=== PATIENT | male | born 2000 | race Caucasian/White ===

== ENCOUNTER 2018-05-20 09:25 | Emergency (ER) | payer SELFPAY ==
[~2018-05-20] VITALS: Ht 167.6 cm; Wt 61.2 kg
[~2018-05-20 09:25] MED LIST: CEPHALEXIN500 M2 PO; MOTRIN IB200 M1 PO; NAPROSYN500 M1 PO; NORCO 325 MG-51 TAB PO
[2018-05-20] MEDS ORDERED: ZOFRAN ODT4 MG PO (10:35)
[2018-05-20 10:54] VITALS: BP 89/46
== END 2018-05-20 10:56 | disposition home or self-care (01) ==
LOC: ED 09:25
DX: J06.9 Acute upper respiratory infection, unspecified (principal); R11.2 Nausea with vomiting, unspecified

== ENCOUNTER 2018-06-23 13:51 | Emergency (ER) | payer SELFPAY ==
[~2018-06-23] VITALS: Ht 170.2 cm; Wt 57.7 kg
[~2018-06-23 13:51] MED LIST changes: +ZOFRAN ODT4 MG PO
[2018-06-23 14:43] LABS: EOS # 0.1 (0.04-0.40); EOS % 1.4 % (0.0-4.0); HEMATOCRIT 45.3 % (36.0-47.0); HEMOGLOBIN 15.5 g/dL (12.5-16.1); LYMPH# 1.9 (1.50-4.00); MEAN CELL VOLUME 84 fl (78-95); MEAN CORPUSCULAR HEMOGLOBIN 29 pg (26-32); MEAN CORPUSCULAR HGB CONC 34 g/dL (33-37); MEAN PLATELET VOLUME 10.1 fl (7.4-10.4); MONO # 0.7 (0.20-0.80); NEU # 3.1 (1.40-6.50); PLATELET COUNT 194 K/mm3 (130-400); RED BLOOD COUNT 5.42 M/mm3 (4.20-5.60); RED CELL DISTRIBUTION WIDTH 13.6 % (11.5-14.5); WHITE BLOOD COUNT 5.8 K/mm3 (4.8-10.8)
[2018-06-23] MEDS ORDERED: NIGHT-TIME COL300 ML PO (14:51)
[2018-06-23] MEDS ORDERED: GUAIFEN-CODEINE5 ML PO (14:55)
[2018-06-23 15:15] VITALS: BP 128/62
== END 2018-06-23 15:12 | disposition home or self-care (01) ==
LOC: ED 13:51
PROVIDERS: Family Medicine
DX: J06.9 Acute upper respiratory infection, unspecified (principal)

== ENCOUNTER 2019-02-15 18:16 | Emergency (ER) | payer SELFPAY ==
[~2019-02-15] VITALS: Ht 167.6 cm; Wt 57.3 kg
[~2019-02-15 18:16] MED LIST changes: +GUAIFEN-CODEINE5 ML PO; +NIGHT-TIME COL300 ML PO
[2019-02-15 18:19] VITALS: BP 138/72
[2019-02-15] MEDS ORDERED: PROAIR HFA0.09 MG/AC IH (19:05)
[2019-02-15] MEDS ORDERED: FLUTICASON0.05 MG/AC NS (19:05)
[2019-02-15] MEDS ORDERED: AZITHROMYCIN 250MGPK PO (19:05)
== END 2019-02-15 19:10 | disposition home or self-care (01) ==
LOC: ED 18:16
DX: J40 Bronchitis, not specified as acute or chronic (principal); F17.210 Nicotine dependence, cigarettes, uncomplicated

== ENCOUNTER → 2021-01-29 | Outpatient (CLI) | payer SELFPAY ==
[~2021-01-29] MED LIST changes: +AZITHROMYCIN 250MGPK PO; +FLUTICASON0.05 MG/AC NS; +PROAIR HFA0.09 MG/AC IH
== END ==
LOC: LAB 17:32
DX: U07.1 COVID-19 (principal)

== ENCOUNTER 2023-05-10 13:32 | Emergency (ER) | payer SELFPAY ==
[~2023-05-10] VITALS: Ht 175.3 cm; Wt 52.3 kg
[2023-05-10 13:42] VITALS: BP 119/84
[2023-05-10] MEDS ORDERED: PAXLOVID CO-PA1 EACH PO (15:16)
== END 2023-05-10 15:29 | disposition home or self-care (01) ==
LOC: ED 13:32
DX: U07.1 COVID-19 (principal); R50.9 Fever, unspecified; R09.81 Nasal congestion; R11.2 Nausea with vomiting, unspecified; F17.210 Nicotine dependence, cigarettes, uncomplicated

== ENCOUNTER 2023-11-19 04:47 | Emergency (ER) | payer MEDICAID ==
[~2023-11-19 04:47] MED LIST changes: +PAXLOVID CO-PA1 EACH PO
[2023-11-19 07:22] LABS: BASO # 0.03 K/mm3 (0.02-0.10); EOS # 0.04 K/mm3 (0.04-0.40); EOS % 0.2 % (0.0-4.0); HEMATOCRIT 48.1 % (42.0-52.0); HEMOGLOBIN 16.3 g/dL (13.5-18.0); LYMPH# 2.72 K/mm3 (1.50-4.00); MEAN CELL VOLUME 83 fl (78-100); MEAN CORPUSCULAR HEMOGLOBIN 28 pg (27-31); MEAN CORPUSCULAR HGB CONC 34 g/dL (33-37); MEAN PLATELET VOLUME 9.4 fl (7.4-10.4); MONO # 0.97 K/mm3 (0.20-0.80); NEU # 18.95 K/mm3 (1.40-6.50); PLATELET COUNT 304 K/mm3 (130-400); RED BLOOD COUNT 5.81 M/mm3 (4.20-5.60); RED CELL DISTRIBUTION WIDTH 12.3 % (11.5-14.5)
[2023-11-19 07:25] LABS: WHITE BLOOD COUNT 22.7 K/mm3 (4.8-10.8)
[2023-11-19 07:30] LABS: SODIUM 144 mmol/L (136-145)
[2023-11-19 07:31] LABS: CALCIUM 10.6 mg/dL (8.3-10.5)
[2023-11-19 07:32] LABS: GLUCOSE 116 mg/dL (75-110)
[2023-11-19 07:34] LABS: TOTAL BILIRUBIN 0.7 mg/dL (0.2-1.2)
[2023-11-19 07:37] LABS: AST-SGOT 19 U/L (5-34)
[2023-11-19 07:39] LABS: ALT/SGPT 14 U/L (0-55)
[2023-11-19 07:40] LABS: CARBON DIOXIDE 17 mmol/L (22-29)
[2023-11-19 07:41] LABS: ACETAMINOPHEN < 1 ug/mL; ALCOHOL IN-HOUSE < 10 mg/dL (<10)
[2023-11-19] MEDS ORDERED: Linezolid 600 MG TAB PO ONE (07:45)
[2023-11-19] MEDS ORDERED: Ketorolac 10 MG TAB PO ONE (17:30)
[2023-11-19 20:07] VITALS: BP 114/67
[2023-11-19 21:24] VITALS: BP 109/70
[2023-11-19 21:40] VITALS: BP 109/70
== END 2023-11-19 21:27 ==
LOC: ED 04:47
PROVIDERS: Physician Assistant
DX: R45.851 Suicidal ideations (principal); M25.551 Pain in right hip; M25.561 Pain in right knee; F12.10 Cannabis abuse, uncomplicated; D72.829 Elevated white blood cell count, unspecified